=== PATIENT | male | born 1995 | race Two or more races ===

== ENCOUNTER 2021-06-08 23:28 | Emergency (ER) | payer OTHER ==
[~2021-06-08] VITALS: Ht 170.2 cm; Wt 70.3 kg
[2021-06-09] MEDS ORDERED: ACETAMINOPHEN 500 MG TABLET PO ONE
[2021-06-09] MEDS ORDERED: KETOROLAC 30MG VIAL (30MG/ML) ONE (00:53)
[2021-06-09] MEDS ORDERED: OSEL75 PO (00:55)
[2021-06-09] MEDS ORDERED: ACET-66 PO (00:55)
[2021-06-09] MEDS ORDERED: KETOROLAC 30MG VIAL (30MG/ML) IM ONE (01:00)
[2021-06-09 01:03] VITALS: BP 121/70
== END 2021-06-09 01:01 | disposition home or self-care (01) ==
LOC: EEVIPCON 23:28 → EDH 23:28
DX: J10.1 Influenza due to other identified influenza virus with other respiratory manifestations (principal); Z20.822 Contact with and (suspected) exposure to COVID-19
CPT/HCPCS: 87426; 87804 ×2; 96372; 99283; J1885